=== PATIENT | female | born 1960 | race Caucasian/White ===

== ENCOUNTER 2021-09-27 10:46 | Outpatient (CLI) | payer SELFPAY ==
[2021-09-27 13:02] LABS: Calcium,Total 10.5 mg/dL (8.5-10.1); Phosphorus 2.2 mg/dL (2.5-4.9)
[2021-09-27 13:26] LABS: PTHIN 223.8 pg/mL (18.4-80.1)
[2021-09-27 13:28] LABS: Vitamin D,25 Hydroxy 30.5 ng/mL
== END 2021-09-27 23:59 | disposition short-term general hospital (02) ==
LOC: BIMLAB 10:46
PROVIDERS: PCP Student in an Organized Health Care Education/Training Program; Referring Provider Internal Medicine Endocrinology, Diabetes & Metabolism; Visit Provider Internal Medicine Endocrinology, Diabetes & Metabolism
DX: E21.3 Hyperparathyroidism, unspecified (principal); E55.9 Vitamin D deficiency, unspecified
CPT/HCPCS: 36415; 82306; 82310; 83970; 84100